=== PATIENT | female | born 2000 | race Caucasian/White ===

== ENCOUNTER 2018-08-23 21:56 | Inpatient (IN) ==
[2018-08-23 22:33] LABS: Baso # (Auto) 0.1 th/mm3 (0.0-0.2); Baso % (Auto) 0.7 % (0.0-2.0); Eos # (Auto) 0.1 th/mm3 (0.0-0.4); Lymph # (Auto) 3.3 th/mm3 (1.0-4.8); Mean Corpuscular Hemoglobin 29.8 pg (27.0-34.0); Mean Corpuscular Volume 87.6 fL (80.0-100.0); Mono # (Auto) 0.7 th/mm3 (0.0-0.9); Mono % (Auto) 8.1 % (0.0-8.0); Neut # (Auto) 4.7 th/mm3 (1.8-7.7); Neut % (Auto) 53.2 % (16.0-70.0); Platelet Count 326 th/mm3 (150-450); Red Blood Count 5.02 mil/mm3 (4.00-5.30); Red Cell Distribution Width 14.7 % (11.6-17.2); White Blood Count 8.8 th/mm3 (4.0-11.0)
[2018-08-23 22:52] LABS: Albumin 4.4 g/dL (3.4-5.0); Anion Gap 7 meq/L (5-15); Aspartate Aminotransferase 13 U/L (16-38); Blood Urea Nitrogen 16 mg/dL (7-18); Calcium 8.8 mg/dL (8.5-10.1); Carbon Dioxide 27.8 meq/L (21.0-32.0); Chloride 106 meq/L (98-107); Glomerular Filtration Rate 78 mL/min (>89); Glucose,Random 98 mg/dL (74-106); Magnesium 1.9 mg/dL (1.5-2.5); Potassium 3.9 meq/L (3.5-5.1); Sodium 141 meq/L (136-145)
[2018-08-23 23:01] LABS: Alanine Aminotransferase 20 U/L (9-42); Alkaline Phosphatase 99 U/L (45-117); Thyroid Stimulating Hormone 0.607 uIU/mL (0.358-3.740); Total Protein 7.8 g/dL (6.4-8.2)
[2018-08-23 23:53] LABS: Amphetamine Screen,Urine Neg (Neg); Barbiturate Screen,Urine Neg (Neg); Cannabinoid Screen,Urine Pos (Neg); Cocaine Screen,Urine Neg (Neg)
[2018-08-23 23:59] LABS: Opiate Screen,Urine Neg (Neg)
--- NOTE | 2018-08-24 00:29 | ED ---
HPI General Chief Complaint: Psychiatric Symptoms Stated Complaint: psych screen/vcso Time Seen by Provider: 08/23/18 22:17 Source: patient and police Mode of arrival: other (Police) Limitations: no limitations History of Present Illness HPI Narrative: Patient presents to our facility under a Sepulveda act. Patient states that she has been having thoughts of wanting to kill herself. States that she knows that her brother has a gun and she wants to use it to kill herself. Mother does not live in the household. MD complaint: Reports suicidal ideation and feels depressed Onset (ago): week(s) (1) Duration: constant History of same: No Relieving factors: none Exacerbating factors: none Context: Denies recent alcohol abuse, recent drug abuse and not taking psychiatric medications Associated psychiatric symptoms: Reports depression and suicidal ideation Associated symptoms: Denies confusion, headache, shortness of breath, nausea and vomiting Treatments prior to arrival: Reports placed on mental health hold Related Data Home Medications Medication Instructions Recorded Confirmed risperidone [Risperdal] 2 mg PO DAILY 08/24/18 08/24/18 Allergies Allergy/AdvReac Type Severity Reaction Status Date / Time No Known Allergies Allergy Verified 08/23/18 22:18 Review of Systems ROS: all other systems reviewed are negative [facility] Medical History Medical History Patient denies medical problems (Acute) Surgical History Surgical History No history of previous surgery (Acute) Social History Social History Substance History: No History of Abuse Second Hand Smoke Exposure: No Smoking Status: Never smoker How Often Do You Have a Drink Containing Alcohol: Never Recent Travel in [facility] within the Last 8 Weeks: No Recent Out of Country Travel within the Last 8 Weeks: No Exam Const General: cooperative Nutritional Appearance: average body habitus and well nourished Orientation: alert, awake and oriented x3 HENMT Head: normocephalic and atraumatic Nose: no nasal discharge and no epistaxis Mouth: moist mucous membranes Eyes Sclera: normal sclerae Pupils: PERRL Neck Neck: trachea midline and no JVD Resp Effort & Inspection: no use of accessory muscles Auscultation: clear to auscultation bilaterally Cardio Rate: regular rate Rhythm: regular rhythm Heart Sounds: no murmurs GI Inspection: non-distended Palpation: soft, no hepatosplenomegaly and nontender Skin General: dry skin (warm) Neuro General: alert and awake Cranial Nerves: other Speech: speech normal Motor: no movement abnormalities noted Extrem General: normal to inspection, no clubbing, no cyanosis and no edema Psych Mood: congruent mood Affect: normal affect Judgment: judgment good Course Initial Documented Vital Signs Temperature 98 F 08/23/18 22:11 Pulse Rate 91 H 08/23/18 22:11 Respiratory Rate 18 08/23/18 22:11 Blood Pressure 132/93 H 08/23/18 22:11 Pulse Oximetry 98 08/23/18 22:11 Last Documented Vital Signs Temperature 98 F 08/23/18 22:11 Pulse Rate 91 H 08/23/18 22:11 Respiratory Rate 18 08/23/18 22:11 Blood Pressure 132/93 H 08/23/18 22:11 Pulse Oximetry 98 08/23/18 22:11 Medical Decision Making MDM Narrative Medical decision making narrative: Patient presents to our facility under a Sepulveda act. Patient states that she has been having thoughts of wanting to kill herself. States that she knows that her brother has a gun and she wants to use it to kill herself. Mother does not live in the household. Patient is a blood pressure of 132/93, pulse is 91, temperature is 98, O2 sat is 98 on room air Patient will receive basic lab work and a urine drug screen Physical exam is unremarkable. Patient is well-appearing and is non-anxious Patient is resting comfortably in bed. Medically cleared at 0030 Await psychiatric evaluation in the morning Medical Screen Exam Complete: Yes Emergency Medical Condition: Yes Lab Data Lab results reviewed: Yes I reviewed the patient's lab results. Result diagrams: 08/23/18 22:25 08/23/18 22:25 POC Results POC Urine Results Negative Lab Results 08/23/18 08/23/18 08/23/18 Range/Units 22:25 22:25 22:25 WBC 8.8 (4.0-11.0) th/mm3 RBC 5.02 (4.00-5.30) mil/mm3 Hgb 15.0 (11.6-15.3) gm/dL Hct 44.0 (35.0-46.0) % MCV 87.6 (80.0-100.0) fL MCH 29.8 (27.0-34.0) pg MCHC 34.0 (32.0-36.0) % RDW 14.7 (11.6-17.2) % Plt Count 326 (150-450) th/mm3 MPV 9.0 (7.0-11.0) fL Neut % (Auto) 53.2 (16.0-70.0) % Lymph % (Auto) 37.0 (9.0-44.0) % [place] % (Auto) 8.1 H (0.0-8.0) % Eos % (Auto) 1.0 (0.0-4.0) % Baso % (Auto) 0.7 (0.0-2.0) % Neut # (Auto) 4.7 (1.8-7.7) th/mm3 Lymph # (Auto) 3.3 (1.0-4.8) th/mm3 [place] # (Auto) 0.7 (0.0-0.9) th/mm3 Eos # (Auto) 0.1 (0.0-0.4) th/mm3 Baso # (Auto) 0.1 (0.0-0.2) th/mm3 WBC Differential . Differential Comment Auto diff final Sodium 141 (136-145) meq/L Potassium 3.9 (3.5-5.1) meq/L Chloride 106 (98-107) meq/L Carbon Dioxide 27.8 (21.0-32.0) meq/L Anion Gap 7 (5-15) meq/L BUN 16 (7-18) mg/dL Creatinine 0.93 (0.50-1.00) mg/dL Estimated GFR 78 L (>89) mL/min Random Glucose 98 (74-106) mg/dL Calcium 8.8 (8.5-10.1) mg/dL Magnesium 1.9 (1.5-2.5) mg/dL Total Bilirubin 0.4 (0.2-1.0) mg/dL AST 13 L (16-38) U/L ALT 20 (9-42) U/L Alkaline Phosphatase 99 (45-117) U/L Total Protein 7.8 (6.4-8.2) g/dL Albumin 4.4 (3.4-5.0) g/dL TSH 0.607 (0.358-3.740) uIU/mL Salicylates Less than 1.7 L (2.8-20.0) mg/dL Urine Opiates Screen (Neg) Acetaminophen Less than 2.0 L (10.0-30.0) mcg/mL Ur Barbiturates Screen (Neg) Ur Amphetamines Screen (Neg) U Benzodiazepines Scrn (Neg) Urine Cocaine Screen (Neg) U Cannabinoids Screen (Neg) Serum Alcohol Less than 3 (0-5) mg/dL 08/23/18 Range/Units 23:00 WBC (4.0-11.0) th/mm3 RBC (4.00-5.30) mil/mm3 Hgb (11.6-15.3) gm/dL Hct (35.0-46.0) % MCV (80.0-100.0) fL MCH (27.0-34.0) pg MCHC (32.0-36.0) % RDW (11.6-17.2) % Plt Count (150-450) th/mm3 MPV (7.0-11.0) fL Neut % (Auto) (16.0-70.0) % Lymph % (Auto) (9.0-44.0) % [place] % (Auto) (0.0-8.0) % Eos % (Auto) (0.0-4.0) % Baso % (Auto) (0.0-2.0) % Neut # (Auto) (1.8-7.7) th/mm3 Lymph # (Auto) (1.0-4.8) th/mm3 [place] # (Auto) (0.0-0.9) th/mm3 Eos # (Auto) (0.0-0.4) th/mm3 Baso # (Auto) (0.0-0.2) th/mm3 WBC Differential Differential Comment Sodium (136-145) meq/L Potassium (3.5-5.1) meq/L Chloride (98-107) meq/L Carbon Dioxide (21.0-32.0) meq/L Anion Gap (5-15) meq/L BUN (7-18) mg/dL Creatinine (0.50-1.00) mg/dL Estimated GFR (>89) mL/min Random Glucose (74-106) mg/dL Calcium (8.5-10.1) mg/dL Magnesium (1.5-2.5) mg/dL Total Bilirubin (0.2-1.0) mg/dL AST (16-38) U/L ALT (9-42) U/L Alkaline Phosphatase (45-117) U/L Total Protein (6.4-8.2) g/dL Albumin (3.4-5.0) g/dL TSH (0.358-3.740) uIU/mL Salicylates (2.8-20.0) mg/dL Urine Opiates Screen Neg (Neg) Acetaminophen (10.0-30.0) mcg/mL Ur Barbiturates Screen Neg (Neg) Ur Amphetamines Screen Neg (Neg) U Benzodiazepines Scrn Neg (Neg) Urine Cocaine Screen Neg (Neg) U Cannabinoids Screen Pos H (Neg) Serum Alcohol (0-5) mg/dL Discharge Plan Discharge Disposition Patient Disposition: Sign Out(ED Internal Use Only) Discharge Condition Condition: Stable Discharge Details Diagnosis: Suicidal ideation Physicians Team ED Provider: Alexandre Arita ED Midlevel Provider: Joselin Ferrera Primary Care Provider: UNKNOWN, Rxs /Orders / Referrals /Forms Prescriptions: No Action risperidone [Risperdal] 2 mg Tablet 2 mg PO DAILY RF: 0 Status ED Status: Medically Cleared
[2018-08-24] MEDS ORDERED: Bisacodyl 10 MG Supp RECTAL PRN (09:30)
[2018-08-24] MEDS ORDERED: Aluminum/Magnesium/Simethacone Susp 30 ML UDC PO PRN (09:30)
--- NOTE | 2018-08-24 12:53 | P.HPPSY ---
Provisional Diagnosis Admission Date: August 24, 2018 09:32 [place] I.: Unspecified psychosis, bipolar disorder, cannabis and alcohol use disorder [place] II.: Unspecified personality disorder Competence Certification of Person's Competence To Provide Express and Informed Consent I have personally examined Valerie Antonio, a person being served at [facility] on, August 24, 2018 1241. Express and informed consent means consent voluntarily given in writing, by a competent person, after sufficient explanation and disclosure of the subject matter involved to enable the person to make a knowing and willful decision without any element of force, fraud, deceit, duress, or other form of constraint or coercion. This person is 18 years of age or older, is not now known to be incompetent to consent to treatment with a guardian advocate, and does not have a health care surrogate or proxy currently making medical treatment decisions. I have found this person to be one of the following: [] Competent to provide express and informed consent, as defined above, for voluntary admission to this facility and is competent to provide express and informed consent for treatment. He/she has the consistent capacity to make well reasoned, willful, and knowing decisions concerning his or her medical or mental health treatment. The person fully and consistently understands the purpose of the admission for examination/placement and is fully capable of personally exercising all rights assured [place] Incompetent to provide express and informed consent to voluntary admission, and this is incompetent to provide express and informed consent to treatment. The person must be transferred to involuntary status and a petition for a guardian advocate filed with the Circuit Court. [x] Refusing to provide express and informed consent to voluntary admission but is competent to provide express and informed consent for treatment. The person must be discharged or transferred to involuntary status. Form shall be completed within 24 hours of a person's arrival at the receiving facility and filed in the clinical record of each person: 1. Admitted on a voluntary basis 2. Permitted to provide express and informed consent to his/her own treatment 3. Allowed to transfer from involuntary to voluntary status 4. Prior to permitting a person to consent to his or her own treatment after having been previously found incompetent to consent to treatment. History of Present Illness Capacity: Has capacity History of Present Illness: The patient is a 17 year-old woman, first time at [facility], domiciled in a rented room, single, unemployed, with a psychiatric history of bipolar disorder, cannabis use disorder, alcohol use disorder, about 15 hospitalizations in the last 3 years, stay hospitalizations, as per mother, she denies suicidal attempts, denies self cutting behavior, she is on Risperdal 2 mg twice daily, she also has history of aggressive behavior, poor impulse control, incarcerations, no significant medical history, who presents to our facility under a Sepulveda act. Patient states that she has been having thoughts of wanting to kill herself. States that she knows that her brother has a gun and she wants to use it to kill herself. Mother does not live in the household. Chart was reviewed. Patient is interviewed in J pod. On my psychiatric evaluation the patient is calm, cooperative. The patient says that she is here because her mother cannot deal with her attitude. She says that she and her mother have a very hard time understanding each other, but when the mother becomes upset with her start inventing things about her behavior. The patient denies hearing any voices, she denies visual hallucinations, she denies suicidal and homicidal ideation. She says that her mother is a pathological liar, manipulator who is looking to destroy her life. When I confronted the patient about urinating on herself the patient denies this. The patient is fully oriented x3, at times she seems to be very concrete and seems to be internally stimulated and oddly related, but she is mostly logical, coherent and relevant. Fully oriented x3. She says that every time that she has been admitted in psychiatry is due to aggressive behavior with her mother. Collateral information from mother, Kailey Paul, [phone], she says that the patient has been talking about wishing to go to [facility] so voices can stop. The patient also has been having outbursts recently inside the car inside the car in which the patient has been yelling out voices at the voices talking to her. The voices has been telling her to piss on herself. The patient has been repeatedly urinating on herself. Patient has no weight taking care of herself, not taking showers, no brushing her teeth, and throwing use tampons in the floor. The patient very soon is going to be evicted because she is not paying her rent. Patient has not been taking her Risperdal and every time that she stops taking her Risperdal to become psychotic needing a hospitalization. The patient had very extensive history of hospitalizations including state hospitalizations in the past. PPHx: psychiatric history of bipolar disorder, cannabis use disorder, alcohol use disorder, about 15 hospitalizations in the last 3 years, stay hospitalizations, as per mother, she denies suicidal attempts, denies self- cutting behavior, she is on Risperdal 2 mg twice daily, she also has history of aggressive behavior, poor impulse control PMHx: No medical history Substance Hx: She reports occasional use of marijuana and alcohol Family Hx: Her mother OCD Social Hx: Patient was born and raised in [place], she lives in [place] in a rented room, unemployed, single, highest level of education is high school - Inpatient Certification I certify that the inpatient services were ordered in accordance with Medicare regulations governing the order. This includes certification that hospital inpatient services are reasonable and necessary and in the case of services not specified as inpatient-only under 42 CFR 419.22(n), that they are appropriately provided as inpatient services in accordance to with the 2-midnight benchmark under 43 CFR 412.3(e) I certify that inpatient psychiatric hospital services are medically necessary. Evaluation and treatment and/or diagnostic testing are expected to improve the patient's condition. The patient needs on a daily basis, active treatment furnished directly by or requiring the supervision of inpatient psychiatric facility personnel. Estimated Total Length of Stay (Days): 7 Plans for Post Hospital Care: Home Review of Systems All other systems reviewed negative except as stated in HPI Psychiatric: Reports irritability, Reports paranoia, Reports sensing things others do not sense [facility] - History History Provided By: Patient, Medical Record - Medical History Medical History: Medical History (Last Reviewed 08/24/18 @ 00:28 by Joselin Ferrera) Patient denies medical problems - Surgical History Surgical History: Surgical History (Last Reviewed 08/24/18 @ 00:28 by Joselin Ferrera) No history of previous surgery - Tobacco History Second Hand Smoke Exposure: No Smoking Status: Never smoker - Alcohol History How Often Do You Have a Drink Containing Alcohol: Never - Substance Use History Substance History: Past History - Substance Use Type Marijuana Status: Early Remission Route Used: Inhalation Reason for Use: Feels Good, Fit In, Get High, Socialization Comment: Pt says hasn't used in 1 month - Travel History Recent Travel in the [place] Within the Last 8 Weeks: No Recent Travel Out of the Country Within the Last 8 Weeks: No - Immunization History Tetanus Immunization: <5 Years Hx Influenza Vaccine This Season: No Medications and Allergies Active Medications: Active Medications Al Hydrox/Mg Hydrox/Simethicone (Mag-Al Plus Susp Liq) 30 ml PO Q6H PRN PRN Reason: DYSPEPSIA Al Hydroxide/Mg Hydroxide (Milk Of Magnesia Liq) 30 ml PO Q12H PRN PRN Reason: Mild Constipation Bisacodyl (Dulcolax Supp) 10 mg RECTAL DAILY PRN PRN Reason: SEVERE CONSITIPATION Lactulose (Lactulose Liq) 30 ml PO DAILY PRN PRN Reason: SEVERE CONSITIPATION Risperidone (Risperdal) 2 mg PO DAILY GERTRUDIS Last Admin: 08/24/18 10:42 Dose: 2 mg Senna/Docusate Sodium (Millie-Colace) 1 tab PO BID GERTRUDIS Sennosides (Senokot) 17.2 mg PO Q12H PRN PRN Reason: Moderate Constipation Allergies Allergy/AdvReac Type Severity Reaction Status Date / Time No Known Allergies Allergy Verified 08/23/18 22:18 Home Medications Medication Instructions Recorded Confirmed Type risperidone [Risperdal] 2 mg PO DAILY 08/24/18 08/24/18 History Results - Labs CBC & Chem 7: 08/23/18 22:25 08/23/18 22:25 Labs: Laboratory Results - last 24 hr 08/23/18 08/23/18 08/23/18 22:25 22:25 22:25 WBC 8.8 RBC 5.02 Hgb 15.0 Hct 44.0 MCV 87.6 MCH 29.8 MCHC 34.0 RDW 14.7 Plt Count 326 MPV 9.0 Neut % (Auto) 53.2 Lymph % (Auto) 37.0 [place] % (Auto) 8.1 H Eos % (Auto) 1.0 Baso % (Auto) 0.7 Neut # (Auto) 4.7 Lymph # (Auto) 3.3 [place] # (Auto) 0.7 Eos # (Auto) 0.1 Baso # (Auto) 0.1 WBC Differential . Differential Comment Auto diff final Sodium 141 Potassium 3.9 Chloride 106 Carbon Dioxide 27.8 Anion Gap 7 BUN 16 Creatinine 0.93 Estimated GFR 78 L Random Glucose 98 Calcium 8.8 Magnesium 1.9 Total Bilirubin 0.4 AST 13 L ALT 20 Alkaline Phosphatase 99 Total Protein 7.8 Albumin 4.4 TSH 0.607 Salicylates Less than 1.7 L Urine Opiates Screen Acetaminophen Less than 2.0 L Ur Barbiturates Screen Ur Amphetamines Screen U Benzodiazepines Scrn Urine Cocaine Screen U Cannabinoids Screen Serum Alcohol Less than 3 08/23/18 23:00 WBC RBC Hgb Hct MCV MCH MCHC RDW Plt Count MPV Neut % (Auto) Lymph % (Auto) [place] % (Auto) Eos % (Auto) Baso % (Auto) Neut # (Auto) Lymph # (Auto) [place] # (Auto) Eos # (Auto) Baso # (Auto) WBC Differential Differential Comment Sodium Potassium Chloride Carbon Dioxide Anion Gap BUN Creatinine Estimated GFR Random Glucose Calcium Magnesium Total Bilirubin AST ALT Alkaline Phosphatase Total Protein Albumin TSH Salicylates Urine Opiates Screen Neg Acetaminophen Ur Barbiturates Screen Neg Ur Amphetamines Screen Neg U Benzodiazepines Scrn Neg Urine Cocaine Screen Neg U Cannabinoids Screen Pos H Serum Alcohol Exam Vital signs: Vital Signs 08/23/18 22:11 08/24/18 11:35 Temperature 98 F 97.7 F Pulse Rate 91 H 82 Respiratory Rate 18 18 Blood Pressure 132/93 H 128/62 Pulse Oximetry 98 98 Intake & Output 08/23/18 08/24/18 08/24/18 18:59 06:59 18:59 Weight 65.1 kg Other: Weight On Admission 65.1 kg Narrative: No EPS, no psychomotor agitation or retardation, no gait disturbance, no withdrawal symptoms, no stiffness, no catatonia - Constitutional no acute distress - Routine HEENT Exam Head: Present: normocephalic, atraumatic Eye: Present: EOMI, PERRL ENT: Present: mucous membranes moist Mental Status Examination Appearance: Appropriate Consciousness: Alert Orientation: x4 Motor Activity: Normal gait Speech: Unremarkable Language: Adequate Fund of Knowledge: Adequate Attention and Concentration: Adequate Memory: Unremarkable Mood: Appropriate Affect: Appropriate Thought Process & Associations: Intact Thought Content: Bizarre thinking Hallucination Type: None Delusion Type: Paranoid Suicidal Ideation: No Suicidal Plan: No Suicidal Intention: No Homicidal Ideation: No Homicidal Plan: No Homicidal Intention: No Insight: Poor Judgment: Poor Assessment and Plan - Assessment (1) Unspecified psychosis Code(s): F29 - Unspecified psychosis not due to a substance or known physiological condition Status: Acute - Plan Plan: On my psychiatric evaluation today I find a patient that is oddly related, with a bizarre affect, who seems to be paranoid and internally preoccupied, but calm and cooperative with evaluation. The patient denies symptoms of depression, she denies anxiety, denies antonia and psychosis. She denies suicidal and homicidal ideation, denies visual and auditory hallucinations. The patient reports that she is not taking her medications because she does not needed. During my evaluation she seems to minimize her psychiatric history and symptomatology. This is a patient with a psychiatric history of bipolar disorder, about 15 hospitalizations in the last 3 years, alleged stay hospitalizations, noncompliant with medication, history of aggressiveness and violence. As per mother the patient has been decompensating recently, not taking care of herself, stating that she can no calm down her voices, urinating on herself because the voices are asking them to do so, self neglecting herself , not taking showers, no brushing her teeth and not taking her medications. The patient seems to be acutely psychotic, will be admitted in psychiatry for stabilization and safety. I will start her Risperdal at the dose of 1 mg twice daily. Patient may benefit of Depo medication. Will be transferred to [address]. food prep worker intervention for psychosocial assessment, individual and group therapies, more collateral information and to coordinate safe discharge. Justification for Continued Inpatient Stay: To be admitted to psychiatry
[2018-08-24] MEDS: Senna/Docusate Sodium 8.6/50 MG Tablet PO SCH (20:35)
[2018-08-25 07:30] LABS: Anion Gap 10 meq/L (5-15); Blood Urea Nitrogen 12 mg/dL (7-18); Calcium 8.8 mg/dL (8.5-10.1); Carbon Dioxide 24.5 meq/L (21.0-32.0); Chloride 106 meq/L (98-107); Cholesterol 143 mg/dL (120-200); Glomerular Filtration Rate Greater Than 89 mL/min (>89); Glucose,Random 84 mg/dL (74-106); Potassium 3.7 meq/L (3.5-5.1); Sodium 140 meq/L (136-145)
[2018-08-25 07:33] LABS: Chol/HDL Ratio 1.95 Ratio; HDL Cholesterol 73.2 mg/dL (40.0-60.0); LDL Cholesterol,Calculated 61 mg/dL (0-99); Triglycerides 44 mg/dL (42-150)
[2018-08-25] MEDS: Senna/Docusate Sodium 8.6/50 MG Tablet PO SCH ×2 (09:07→20:23)
--- NOTE | 2018-08-25 10:39 | P.PNPSY ---
Subjective Remarks: Patient initially admitted by Dr. Cedeno, his H&P reviewed and agreed with, Dr. Cedeno is signed first opinion petition supporting Sepulveda act. I agree. Patient meets criteria for involuntary psychiatric hospitalization of the Sepulveda act thus I will cosign second opinion petition supporting Sepulveda act. I have also completed the initial psychiatric admission template orders. And reviewed the med reconciliation. Patient seen by me in her room with nurse Madeline. Patient is somewhat disheveled. He geared white female sitting on her bed. Has fairly long hair pulled up in a bun. She pulled a long strand of that hair and continually twirled it through our session. She denies mental illness. States only voices she hears in her head are her own. She attempts to deflect all responsibility for her behavior onto her mother. Though she does acknowledge at least 15 Sepulveda acts in the past and many of them down on the [facility] area. She states she has been compliant with medication though I sincerely doubt that. She does denies suicidality. Her urine toxicology is positive for marijuana. She states she smoked it briefly about a week ago otherwise has been a significant period of time. She is vague about any polysubstance use in the past. She states she was renting a room from an ex- boyfriend of her mother's prior to this episode. That she plans on returning home with her mother once she is discharged. Though she does refuse to allow us to speak to the mother at this time. We will restart the Resporal at 2 mg twice daily will refrain from any benzodiazepines offer her Atarax and Maalox as needed. Hopefully this be fairly short stay we can converse with patient's family to arrange for appropriate home care medications and follow-up Review of Systems All other systems reviewed negative except as stated in HPI Mental Status Examination Appearance: Appropriate Consciousness: Alert Orientation: x4 Motor Activity: Normal gait Speech: Unremarkable Language: Adequate Fund of Knowledge: Adequate Attention and Concentration: Adequate (Fair) Memory: Unremarkable (Fair) Mood: Oppositional (Mildly), Other (Somewhat restricted) Affect: Other (Slight decreased range and intensity) Thought Process & Associations: Linear Thought Content: Bizarre thinking Hallucination Type: None Delusion Type: Paranoid Suicidal Ideation: No Suicidal Plan: No Suicidal Intention: No Homicidal Ideation: No Homicidal Plan: No Homicidal Intention: No Insight: Poor Judgment: Poor Assessment and Plan - Assessment (1) Unspecified psychosis Code(s): F29 - Unspecified psychosis not due to a substance or known physiological condition Status: Acute - Plan Plan: Patient remains psychotic delusional and vigilant. Though she is compliant medication. For now continue treatment we will attempt to reach patient's father and/or mother to get further information about this young lady to arrange for appropriate discharge planning and follow-up Justification for Continued Inpatient Stay: At this time patient with decompensated placed in a lower level of care Discharge Planning: Possible to return home with family Request Healthcare Surrogate/Guardian Advocate?: No (1) Unspecified psychosis Qualifiers: Psychosis type: schizoaffective disorder Schizoaffective disorder type: bipolar Qualified Code(s): F25.0 - Schizoaffective disorder, bipolar type
[2018-08-25 16:33] LABS: Hemoglobin A1c 5.1 % (4.3-6.0)
[2018-08-26] MEDS: Senna/Docusate Sodium 8.6/50 MG Tablet PO SCH (08:59)
--- NOTE | 2018-08-26 09:19 | P.TTN ---
- Patient Problems Problems: 1. Discharge planning 2. Medication compliance 3. Knowledge deficit 4. Lack of coping skills - Progress Toward Goals Provider Present: Dr. Randy Walker Provider Input: 08/26/18: Pt has hx of psych admissions, pt may be "cheeking" medications, (per OTR following pt admission of this). Pt has been encouraged to be forthcoming with nursing and psychiatrist pertaining to her hearing voices and per her feelings about medications. Pt is not stable. Discharging location has yet to be determined. Per yesterday's conversation with counselor, OTR and family, [place] [facility] may have been initiated. Psychiatric Counselors Present: Other Psychiatric Therapist Input: CounselorVandana is present. Counselor Anh and OTR have as of 08/25/18 spoken with pt's mother during phone call about pt's condition, repeated psychiatric admissions, [place] [facility] and/or residential facility as options. Group Spec/RT/OT/PRASAD Present: Pascual Evans OT Group Spec/RT/OT/PRASAD Input: 08/25/19: Pt attends groups, she is appropriate, social, engaging. Occupational Therapist Input: 08/25/19: . Pt has been evaluated, assessment discussed with team. Concerns are raised by OTR of pt's contention that she hears voices, she has been non-compliant with medications, she has family discord, she is a chronic marijuana user/abuser. Pt also reports hearing the voice of one specific person who commands pt to act, that this voice is heard with regularity and continues. - Discharge Plan 08/26/18: Discharging location has yet to be determined. Per yesterday's conversation with counselor, OTR and family, [place] [facility] may have been initiated. - Documentation Teaching Recipient: Patient
--- NOTE | 2018-08-26 13:11 | P.PNPSY ---
Subjective Remarks: Patient is seen today in her room with nurse Lolis, chart reviewed, patient refusing to take Resporal. Today patient states that she hears spirits in her head that she appears to be channeling them. That they are cooperative with her and support her. She states she also can read peoples history through tarot cards. That she has a spiritualist. She continues to perseverate on her mother being responsible for her multiple [place] acts so she reluctantly also acknowledged that the auditory hallucinations and may also be a component. She states her father is much more understanding of her. That he can done so using marijuana. I may occasionally smoke with her. He also appears not to believe in psychiatric treatment, or medication. That he is supportive of her not taking her medication. 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 Though she did deny prostitution. I did explain her being scheduled for [facility] hearing tomorrow and the purpose of that. Patient states she has a boyfriend with whom she is sexually active both with and without condom protection. She does not feel as if she were Review of Systems All other systems reviewed negative except as stated in HPI Mental Status Examination Appearance: Appropriate Consciousness: Alert Orientation: x4 Motor Activity: Normal gait Speech: Unremarkable Language: Adequate Fund of Knowledge: Adequate Attention and Concentration: Adequate (Fair) Memory: Unremarkable (Fair) Mood: Oppositional (Mildly), Other (Euthymic is somewhat restricted) Affect: Other (Slight decreased range and intensity) Thought Process & Associations: Linear Thought Content: Bizarre thinking, Hallucinations ("Spirits" that she feels a real and that she can communicate with) Hallucination Type: Auditory Delusion Type: Bizarre, Paranoid Suicidal Ideation: No Suicidal Plan: No Suicidal Intention: No Homicidal Ideation: No Homicidal Plan: No Homicidal Intention: No Insight: Poor Judgment: Poor Assessment and Plan - Assessment (1) Unspecified psychosis Code(s): F29 - Unspecified psychosis not due to a substance or known physiological condition Status: Acute - Plan Plan: Patient remains psychotic delusional grandiose and somewhat paranoid. Patient is scheduled for [facility] [facility] tomorrow Justification for Continued Inpatient Stay: At this time patient would decompensated placed in a lower level of care Discharge Planning: To be determined Request Healthcare Surrogate/Guardian Advocate?: No (1) Unspecified psychosis Qualifiers: Psychosis type: schizoaffective disorder Schizoaffective disorder type: bipolar Qualified Code(s): F25.0 - Schizoaffective disorder, bipolar type
[2018-08-27] MEDS: Senna/Docusate Sodium 8.6/50 MG Tablet PO SCH ×2 (05:41→12:49)
[2018-08-27 06:27] VITALS: BP 105/55; PULSE 55; RESP 18; TEMP 97.7; O2SAT 97
--- NOTE | 2018-08-27 10:04 | P.DSPSY ---
Psychiatry Discharge Summary Inpatient Psychiatric care?: Yes Advance Directives: No Mental Health Advance Directive: No Health Care Proxy: No - Admission Admission Date: August 24, 2018 09:32 - Admission Diagnosis (1) Unspecified psychosis Code(s): F29 - Unspecified psychosis not due to a substance or known physiological condition Brief History: The patient is a 17 year-old woman, first time at [facility], domiciled in a rented room, single, unemployed, with a psychiatric history of bipolar disorder, cannabis use disorder, alcohol use disorder, about 15 hospitalizations in the last 3 years, stay hospitalizations, as per mother, she denies suicidal attempts, denies self cutting behavior, she is on Risperdal 2 mg twice daily, she also has history of aggressive behavior, poor impulse control, incarcerations, no significant medical history, who presents to our facility under a [place] act. Patient states that she has been having thoughts of wanting to kill herself. States that she knows that her brother has a gun and she wants to use it to kill herself. Mother does not live in the household. Chart was reviewed. Patient is interviewed in J pod. On my psychiatric evaluation the patient is calm, cooperative. The patient says that she is here because her mother cannot deal with her attitude. She says that she and her mother have a very hard time understanding each other, but when the mother becomes upset with her start inventing things about her behavior. The patient denies hearing any voices, she denies visual hallucinations, she denies suicidal and homicidal ideation. She says that her mother is a pathological liar, manipulator who is looking to destroy her life. When I confronted the patient about urinating on herself the patient denies this. The patient is fully oriented x3, at times she seems to be very concrete and seems to be internally stimulated and oddly related, but she is mostly logical, coherent and relevant. Fully oriented x3. She says that every time that she has been admitted in psychiatry is due to aggressive behavior with her mother. Collateral information from mother, Kailey Paul, [phone], she says that the patient has been talking about wishing to go to [facility] so voices can stop. The patient also has been having outbursts recently inside the car inside the car in which the patient has been yelling out voices at the voices talking to her. The voices has been telling her to piss on herself. The patient has been repeatedly urinating on herself. Patient has no weight taking care of herself, not taking showers, no brushing her teeth, and throwing use tampons in the floor. The patient very soon is going to be evicted because she is not paying her rent. Patient has not been taking her Risperdal and every time that she stops taking her Risperdal to become psychotic needing a hospitalization. The patient had very extensive history of hospitalizations including state hospitalizations in the past. PPHx: psychiatric history of bipolar disorder, cannabis use disorder, alcohol use disorder, about 15 hospitalizations in the last 3 years, stay hospitalizations, as per mother, she denies suicidal attempts, denies self- cutting behavior, she is on Risperdal 2 mg twice daily, she also has history of aggressive behavior, poor impulse control PMHx: No medical history Substance Hx: She reports occasional use of marijuana and alcohol Family Hx: Her mother OCD Social Hx: Patient was born and raised in [place], she lives in [place] in a rented room, unemployed, single, highest level of education is high school Tobacco Use In Past 30 Days: No How Often Do You Have a Drink Containing Alcohol: Never Hospital Course: Patient's hospital course was uneventful, she showed no behavioral problems. Though she remained psychotic believing that she was able to hear spirits and a channel through Silvio cards. She does denies suicidality or homicidality. Patient is seen and [place] [facility] today with her mother present. [facility]. Patient to be discharged per [place] [facility] hearing in order the paper carrier Matty. No Rx by ct. Mother states she has made appointments with counselor and a psychiatrist. Patient may follow-up with them at her discretion. Also recommend absolute abstinence and no use of marijuana - Discharge Discharge Date: 08/27/18 - Discharge Diagnosis (1) Suicidal ideation Diagnosis: Principal Code(s): R45.851 - Suicidal ideations Status: Acute (2) Marijuana abuse Diagnosis: Secondary Code(s): F12.10 - Cannabis abuse, uncomplicated Status: Acute Discharge Disposition: Home - Discharge Instructions Discharge Diet: Regular Diet Activities You Can Perform: Regular- No Restrictions - Discharge Time > 30 minutes Mental Status Examination Appearance: Appropriate Consciousness: Alert Orientation: x4 Motor Activity: Normal gait Speech: Unremarkable Language: Adequate Fund of Knowledge: Adequate Attention and Concentration: Adequate (Fair) Memory: Unremarkable (Fair) Mood: Oppositional (Mildly), Other (Euthymic is somewhat restricted) Affect: Other (Slight decreased range and intensity) Thought Process & Associations: Linear Thought Content: Bizarre thinking, Hallucinations ("Spirits" that she feels a real and that she can communicate with) Hallucination Type: Auditory Delusion Type: Bizarre, Paranoid Suicidal Ideation: No Suicidal Plan: No Suicidal Intention: No Homicidal Ideation: No Homicidal Plan: No Homicidal Intention: No Insight: Poor Judgment: Poor Discharge/Advance Care Plan - Results Vital Signs: Last Vital Signs Temp 97.7 F 08/27/18 06:26 Pulse 55 L 08/27/18 06:26 Resp 18 08/27/18 06:26 BP 105/55 L 08/27/18 06:26 Pulse Ox 97 08/27/18 06:26 Lab Results: Laboratory Results Hemoglobin A1c 5.1 % (4.3-6.0) 08/25/18 06:30 Triglycerides 44 mg/dL (42-150) 08/25/18 06:30 Cholesterol 143 mg/dL (120-200) 08/25/18 06:30 LDL Cholesterol, Calc 61 mg/dL (0-99) 08/25/18 06:30 HDL Cholesterol 73.2 mg/dL (40.0-60.0) H 08/25/18 06:30 TSH 0.607 uIU/mL (0.358-3.740) 08/23/18 22:25 Summary of Procedures: None done Pending Results: None - Medications Number of antipsychotic medications at discharge: 0 - Discharge Care Plan Goals to Promote Your Health: * To prevent worsening of your condition and complications * To maintain your health at the optimal level Directions to Meet Your Goals: Take your medications as prescribed Follow your dietary instruction Follow activity as directed Keep your appointments as scheduled Take your immunizations and boosters as scheduled If your symptoms worsen call your PCP, if no PCP go to Urgent Care Center or Emergency Room For 31/03 questions related to your inpatient stay or results of tests pending at discharge, please contact Dr. Juan C Walker MD at Smoking is Dangerous to Your Health. Avoid second hand smoking (1) Unspecified psychosis Qualifiers: Psychosis type: schizoaffective disorder Schizoaffective disorder type: bipolar Qualified Code(s): F25.0 - Schizoaffective disorder, bipolar type
== END 2018-08-27 12:45 | disposition home or self-care (01) ==
LOC: NEPJ 21:56 → NEDA 08-24 09:32 → H260 08-24 12:16
PROVIDERS: ADMIT Psychiatry & Neurology Psychiatry; ATTEND Psychiatry & Neurology Psychiatry